=== PATIENT | male | born 1975 | race African-American/Black ===

== ENCOUNTER → 2019-02-17 11:24 | Outpatient (ROUT) | payer OTHER, MEDICAID, SELFPAY ==
[2019-02-17 13:06] LABS: Urine N gonorrhoeae NOT DETECTED
[2019-02-17 13:17] LABS: Urine Chlamydia NOT DETECTED
== END ==
PROVIDERS: Visit Provider Physician Assistant
DX: Z11.3 Encounter for screening for infections with a predominantly sexual mode of transmission (principal)
CPT/HCPCS: 87491; 87591